=== PATIENT | male | born 1995 | race Two or more races ===

== ENCOUNTER 2024-09-16 10:09 | Emergency (ER) | payer OTHER ==
[~2024-09-16] VITALS: Ht 180.3 cm; Wt 83.6 kg
[2024-09-16 11:16] VITALS: TEMP 98.3
[2024-09-16] MEDS: DiphenhydrAMINE HCL 25 MG CAPSULE PO ONE (12:30)
[2024-09-16] MEDS: PredniSONE 20 MG TABLET PO ONE (12:30)
[2024-09-16 12:35] VITALS: BP 128/77; PULSE 63; RESP 16; O2SAT 100
== END 2024-09-16 13:57 ==
LOC: EMS 10:09
DX: T78.40XA Allergy, unspecified, initial encounter (principal); X58.XXXA Exposure to other specified factors, initial encounter
CPT/HCPCS: 99283; J7512